=== PATIENT | male | born 1960 | race Caucasian/White ===

== ENCOUNTER 2023-07-24 00:55 | Inpatient (IN) | payer BC ==
[2023-07-24] MEDS ORDERED: Dexamethasone 10 MG/ML VIAL ONE ×3 (01:20→14:11)
[2023-07-24] MEDS ORDERED: Ondansetron PF 4 MG/2 ML Vial IVP PRN (01:52)
[2023-07-24] MEDS ORDERED: Acetaminophen 325 MG TAB PO PRN (01:52)
[2023-07-24] MEDS ORDERED: hydrALAZINE 20 MG/ML VIAL SLOW IVP PRN (01:54)
[2023-07-24] MEDS ORDERED: Dextrose 5% in Water 1,000 ML IV PRN (01:56)
[2023-07-24] MEDS ORDERED: Glucagon 1 MG/ML KIT IM PRN (01:56)
[2023-07-24] MEDS ORDERED: HumaLOG 300 UNITS/3 ML VIAL SC PRN ×2 (01:56)
[2023-07-24] MEDS ORDERED: Dextrose 50% Abboject 50 ML SYRINGE SLOW IVP PRN (01:56)
[2023-07-24] MEDS ORDERED: Potassium Chloride 20 MEQ TAB PO SCH ×2 (02:00→14:00)
[2023-07-24 04:07] LABS: #Monocytes 0.2 thou/uL (0.11-0.59); #Neutrophils 8.4 thou/uL (1.40-6.50); %Basophils 0.2 % (0.0-1.0); %Eosinophils 0.3 % (0.0-10.0); %Lymphocytes 5.1 % (21.0-51.0); %Monocytes 1.6 % (0.0-10.0); %Neutrophils 92.5 % (42.0-75.0); Hematocrit 45.9 % (42.0-52.0); Hemoglobin 15.7 g/dL (14.0-18.0); Mean Corpuscular HGB CONC 34.2 g/dL (32.0-36.0); Mean Corpuscular Hemoglobin 28.3 pg (27.0-31.0); Mean Corpuscular Volume 82.9 fl (78.0-98.0); Mean Platelet Volume 9.4 fL (7.4-10.4); Platelet Count 317 10x3/uL (130-400); RBC Distribution Width 13.2 % (11.5-14.5); Red Blood Cell (RBC) Count 5.54 mill/uL (4.70-6.10); White Blood Cell (WBC) Count 9.1 10x3/uL (4.8-10.8)
[2023-07-24 04:27] LABS: Hemoglobin A1c 6.9 % (4.0-6.0)
[2023-07-24 04:30] LABS: Anion Gap 17 mmol/L (10-20); BUN (Urea Nitrogen) 18 mg/dL (8.4-25.7); Calc. Creatinine Clearance 88 mL/min (70-130); Calcium 9.8 mg/dL (7.8-10.44); Carbon Dioxide 30 mmol/L (23-31); Chloride 99 mmol/L (98-107); Estimated GFR 85; Glucose 181 mg/dL (80-115); Magnesium 2.1 mg/dL (1.6-2.6); Potassium 2.8 mmol/L (3.5-5.1); Sodium 143 mmol/L (136-145)
[2023-07-24] MEDS: Dexamethasone 4 mg/ml Vial SLOW IVP SCH ×3 (08:35→21:47)
[2023-07-24] MEDS ORDERED: Amlodipine 10 MG TAB PO SCH (09:36)
[2023-07-24] MEDS ORDERED: Hydrochlorothiazide 25 MG TAB PO SCH (09:45)
[2023-07-24] MEDS ORDERED: Valsartan 80 MG TAB PO SCH (09:45)
[2023-07-24] MEDS ORDERED: Iopamidol-370 76% 500 ML MDV (1 ML CHARGE) ONE (14:10)
[2023-07-24] MEDS ORDERED: GASTROGRAFIN 30 ML BOT ONE (14:10)
[2023-07-24] MEDS ORDERED: Potassium Chloride 20 MEQ TAB ONE (14:12)
[2023-07-24] MEDS ORDERED: Magnevist 469MG/ML 20 ML VIAL ONE (14:42)
[2023-07-24 21:13] VITALS: BMI 22.8
[2023-07-25] MEDS: Dexamethasone 4 mg/ml Vial SLOW IVP SCH ×3 (03:01→14:38)
[2023-07-25 06:03] LABS: #Monocytes 0.3 thou/uL (0.11-0.59); #Neutrophils 10.2 thou/uL (1.40-6.50); %Basophils 0.1 % (0.0-1.0); %Lymphocytes 4.2 % (21.0-51.0); %Monocytes 3.1 % (0.0-10.0); %Neutrophils 92.2 % (42.0-75.0); Hematocrit 45.1 % (42.0-52.0); Hemoglobin 15.5 g/dL (14.0-18.0); Mean Corpuscular HGB CONC 34.4 g/dL (32.0-36.0); Mean Corpuscular Hemoglobin 28.3 pg (27.0-31.0); Mean Corpuscular Volume 82.4 fl (78.0-98.0); Mean Platelet Volume 9.9 fL (7.4-10.4); Platelet Count 316 10x3/uL (130-400); RBC Distribution Width 13.2 % (11.5-14.5); Red Blood Cell (RBC) Count 5.47 mill/uL (4.70-6.10)
[2023-07-25 06:36] LABS: Anion Gap 14 mmol/L (10-20); BUN (Urea Nitrogen) 18 mg/dL (8.4-25.7); Calc. Creatinine Clearance 93 mL/min (70-130); Calcium 9.8 mg/dL (7.8-10.44); Carbon Dioxide 31 mmol/L (23-31); Chloride 98 mmol/L (98-107); Estimated GFR 97; Glucose 184 mg/dL (80-115); Magnesium 2.3 mg/dL (1.6-2.6); Sodium 141 mmol/L (136-145)
[2023-07-25 06:39] LABS: Potassium 2.3 mmol/L (3.5-5.1)
[2023-07-25] MEDS ORDERED: Electrolyte Replacement Protocol 1 EACH FS SCH (06:45)
[2023-07-25] MEDS ORDERED: Potassium Chloride 20 MEQ TAB PO SCH ×2 (08:00→16:00)
[2023-07-25] MEDS ORDERED: Empagliflozin 10 MG TAB PO SCH (09:00)
[2023-07-25] MEDS ORDERED: Atenolol 50 MG TAB PO SCH (09:00)
[2023-07-25] MEDS ORDERED: Ascorbic Acid 500 mg Chewable Tablet PO SCH (09:00)
[2023-07-25] MEDS ORDERED: Hydrochlorothiazide 25 MG TAB PO SCH (09:00)
[2023-07-25] MEDS ORDERED: Valsartan 80 MG TAB PO SCH (09:00)
[2023-07-25] MEDS ORDERED: Amlodipine 10 MG TAB PO SCH (09:00)
[2023-07-25] MEDS: Potassium Chloride 40 MEQ in Sodium Chloride 0.9% 250 ML 250 ML IVPB SCH ×2 (09:21→14:38)
[2023-07-25] MEDS: hydrALAZINE 25 MG TAB PO SCH ×2 (09:23→14:38)
[2023-07-25 13:01] LABS: Potassium 2.9 mmol/L (3.5-5.1)
[2023-07-25 16:18] VITALS: BP 133/77; TEMP 97.9
== END 2023-07-25 17:35 | disposition home or self-care (01) | DRG 54 ==
LOC: ERS 00:55 → ERHOLD 01:54 → 2SE 20:08
PROVIDERS: ADMIT Internal Medicine; ATTEND Family Medicine
DX: D49.6 Neoplasm of unspecified behavior of brain (principal); G93.41 Metabolic encephalopathy; G93.6 Cerebral edema; I31.39 Other pericardial effusion (noninflammatory); Z51.5 Encounter for palliative care; F17.220 Nicotine dependence, chewing tobacco, uncomplicated; F10.90 Alcohol use, unspecified, uncomplicated; E87.6 Hypokalemia; E11.65 Type 2 diabetes mellitus with hyperglycemia; G93.89 Other specified disorders of brain; I10 Essential (primary) hypertension; Z88.5 Allergy status to narcotic agent; Z79.899 Other long term (current) drug therapy; Z98.890 Other specified postprocedural states
CPT/HCPCS: 36415; 36416; 70450; 70553; 71260; 74177; 80048; 80053; 83036; 83605; 83735; 84443; 84484; 85025; 93005; 93306; 96374; A9579; J1100; J3480; J7050; Q9963; Q9967

== ENCOUNTER 2023-09-29 11:38 | Outpatient (CLI) | payer BC ==
[2023-09-29] MEDS ORDERED: Magnevist 469MG/ML 20 ML VIAL ONE (15:09)
== END 2023-09-29 11:39 | disposition home or self-care (01) ==
LOC: MRI 11:38
PROVIDERS: ATTEND Radiology Radiation Oncology
DX: C71.9 Malignant neoplasm of brain, unspecified (principal)
CPT/HCPCS: 70553; A9579